=== PATIENT | male | born 1965 | race African-American/Black ===

== ENCOUNTER 2025-02-19 18:34 | Emergency (ER) | payer BC ==
[~2025-02-19] VITALS: Ht 180.3 cm; Wt 85.0 kg
[2025-02-19 18:36] VITALS: O2SAT 99
[2025-02-19] MEDS: IBUPROFEN 600MG TABLET PO ONE (21:52)
[2025-02-19] MEDS: CYCLOBENZAPRINE 10MG TABLET PO ONE (21:52)
[2025-02-20] MEDS ORDERED: IBUP-2029 MT (00:28)
[2025-02-20] MEDS ORDERED: CYCL10TA21 MT (00:28)
[2025-02-20] MEDS ORDERED: LIDO700A30 TP (00:29)
[2025-02-20] MEDS: IBUPROFEN 600MG TABLET PO ONE (00:54)
[2025-02-20] MEDS: CYCLOBENZAPRINE 10MG TABLET PO ONE (00:54)
[2025-02-20 00:55] VITALS: BP 146/100; PULSE 62; RESP 18; TEMP 37; O2SAT 100
== END 2025-02-20 00:56 | disposition home or self-care (01) ==
LOC: ER 18:34
DX: M54.2 Cervicalgia (principal); R51.9 Headache, unspecified; M54.50 Low back pain, unspecified; Z98.890 Other specified postprocedural states; Z79.899 Other long term (current) drug therapy; Y08.89XA Assault by other specified means, initial encounter; Y93.89 Activity, other specified; Y92.89 Other specified places as the place of occurrence of the external cause; Y99.8 Other external cause status
CPT/HCPCS: 71046; 73120; 73590; 99284